=== PATIENT | female | born 2005 | race Caucasian/White ===

== ENCOUNTER 2025-01-01 19:57 | Inpatient (IN) | payer SELFPAY ==
[~2025-01-01] VITALS: Ht 167.6 cm; Wt 130.0 kg
[2025-01-01 20:05] VITALS: O2SAT 96
[2025-01-01] MEDS: ZIPRASIDONE MESYLATE 20MG/VIAL IM ONE (21:10)
[2025-01-01 23:59] LABS: BASOPHILS % 0.2 % (0.0-2.0); EOSINOPHILS % 0.0 % (0.0-5.0); HEMATOCRIT. 41.1 % (36.0-48.0); HEMOGLOBIN. 13.8 g/dL (12.0-16.0); LYMPHOCYTES % 16.8 % (20.0-50.0); MEAN PLATELET VOLUME 7.8 fl (7.4-10.4); MONOCYTES % 3.3 % (2.0-8.0); NEUTROPHILS % 79.7 % (40.0-76.0); PLATELET 215 x1000/uL (130-400); RED BLOOD CELL COUNT 4.26 mill/uL (4.2-5.4); RED CELL DISTRIBUTION WIDTH 13.4 % (11.6-14.6)
[2025-01-02 00:13] LABS: CREATININE 0.8 mg/dL (0.6-1.0); ETHANOL BLOOD 267 mg/dL (<10); HCG SCREEN NEGATIVE; UREA NITROGEN BLOOD < 5 mg/dL (9-23)
[2025-01-02 00:15] LABS: ASPARTATE AMINOTRANSFERASE 24 IU/L (<34); BILIRUBIN DIRECT 0.1 mg/dL (<=3.0); BILIRUBIN TOTAL 0.4 mg/dL (0.1-1.0); PROTEIN TOTAL 7.3 g/dL (6.0-8.3)
[2025-01-02] MEDS: OLANZAPINE 10 MG/VIAL IM ONE (00:54)
[2025-01-02] MEDS: DIPHENHYDRAMINE 50MG/ML VIAL IM ONE (00:54)
[2025-01-02] MEDS ORDERED: GUAIFENESIN 200MG/10ML SUGAR FREE UDC PO PRN (02:30)
[2025-01-02] MEDS ORDERED: IPRATROPIUM/ALBUTEROL 0.5-3(2.5)MG/3ML NEB HHN PRN (02:30)
[2025-01-02] MEDS ORDERED: DOCUSATE SODIUM 100MG CAPSULE PO PRN (02:30)
[2025-01-02] MEDS ORDERED: ACETAMINOPHEN 325MG TABLET PO PRN ×2 (02:30)
[2025-01-02] MEDS ORDERED: ONDANSETRON HCL 4MG/2ML INJ IV PRN (02:30)
[2025-01-02] MEDS ORDERED: THIAMINE HCL 100MG TABLET PO SCH (02:30)
[2025-01-02 02:35] VITALS: TEMP 36.9; O2SAT 100
[2025-01-02 02:39] VITALS: BP 92/53; PULSE 67; RESP 14; TEMP 98.5
[2025-01-02] MEDS ORDERED: LORAZEPAM 2MG/ML UD SYRINGE IV PRN ×2 (02:45)
[2025-01-02] MEDS ORDERED: MVI, ADULT NO.1 10 ML, FOLIC ACID 1 MG, THIAMINE HCL 100 MG in SODIUM CHLORIDE 0.9% 1,0... IV SCH (03:00)
[2025-01-02] MEDS ORDERED: PANTOPRAZOLE SODIUM 40 MG/VIAL IV SCH (03:15)
[2025-01-02] MEDS ORDERED: DEXT 5%/0.45% NACL 1000ML 1,000 ML IV SCH (03:15)
[2025-01-02] MEDS ORDERED: FOLIC ACID 1MG TABLET PO SCH (09:00)
== END 2025-01-02 04:07 | disposition left against medical advice (07) | DRG 770 ==
LOC: ER 19:57 → 6WST 01-02 01:59 → EDBEDREQTM 01-02 02:09 → EDBEDREQ 01-02 02:09 → ENRESERV 01-02 02:15
PROVIDERS: ADMIT Hospitalist; ATTEND Hospitalist
DX: F10.129 Alcohol abuse with intoxication, unspecified (principal); Z78.1 Physical restraint status; F19.10 Other psychoactive substance abuse, uncomplicated; F41.9 Anxiety disorder, unspecified; Y90.8 Blood alcohol level of 240 mg/100 ml or more; Z53.29 Procedure and treatment not carried out because of patient's decision for other reasons
CPT/HCPCS: 36415; 71045; 80048; 80076; 80307; 80320; 80329; 83735; 84703; 85025; 93005; 99285; J1200; J3411; J3486; J3490; J7030; G0480